=== PATIENT | male | born 1950 | race Caucasian/White ===

== ENCOUNTER 2018-03-31 07:41 | Day surgery (SDC) | payer MEDICARE, BC ==
[2018-03-29 11:20] VITALS: BMI 49.4
[~2018-03-31 07:41] MED LIST: CYCLOPENTOLATE 1% OPHTH SOLN 2 ML BTL OP ONE; LACTATED RINGERS 1,000 ML IV SCH; MOXIFLOXACIN HCL 0.5% DROPS 3 ML BTL OP ONE; PHENYLEPHRINE 2.5% OPHTH DRP 2ML OP NR; TETRACAINE 0.5% OPHTH (PF) DROPS 4 ML BTL OP ONE; TIMOLOL 0.5% OPHTH DROPS 5 ML BTL OP ONE
[2018-03-31 08:46] VITALS: TEMP 98.7
[2018-03-31 09:01] LABS: Glucose,Whole Blood 99 mg/dL (75-99)
[2018-03-31] MEDS ORDERED: LIDOCAINE 1% 20 ML VIAL (10MG/ML) FOR IV START INTRADERMA ONE (09:03)
[2018-03-31] MEDS ORDERED: fentaNYL (PF) 50 MCG/ML 2 ML AMP ONE (09:35)
[2018-03-31] MEDS ORDERED: MIDAZOLAM 2 MG/2 ML VIAL ONE (09:35)
[2018-03-31] MEDS ORDERED: BALANCED SALT IRRIG SOLN COMB2 15 ML IRRIG.SOLN IRRIGATION ONE (09:42)
[2018-03-31] MEDS ORDERED: HYALURONATE SODIUM INTRAOCULAR 1 EACH SYRINGE (12MG/ML) INTRAOCULA ONE (09:42)
[2018-03-31] MEDS ORDERED: LIDOCAINE 1% (PF) 10MG/ML VIAL SQ ONE (09:42)
[2018-03-31] MEDS ORDERED: EPINEPHrine (PF) 0.3 ML in BALANCED SALT IRRIG SOLN COMB2 500 ML IRRIGATION ONE (09:51)
--- NOTE | 2018-03-31 10:08 | P.OP ---
Date of Procedure: 03/31/18 Preoperative Diagnosis: NS & CS & PSC Postoperative Diagnosis: same Procedure(s) Performed: PIOL, OS Implants: PCB00 25.00 Anesthesia: MAC Surgeon: Alejandro Albarran Pathology: none sent Condition: stable Disposition: same day Indications for Procedure: Blurry vision Operative Findings: No complications
[2018-03-31 10:19] VITALS: RESP 18
[2018-03-31 10:24] LABS: Glucose,Whole Blood 100 mg/dL (75-99)
[2018-03-31 10:27] VITALS: BP 132/60; PULSE 67
--- NOTE | 2018-03-31 11:14 | OP ---
OPERATIVE REPORT DATE OF SERVICE: 03/31/2018. SURGEON: Alejandro Albarran MD PREOPERATIVE DIAGNOSIS: Nuclear sclerosis, cortical sclerosis and posterior subcapsular cataract POSTOPERATIVE DIAGNOSIS: Nuclear sclerosis, cortical sclerosis and posterior subcapsular cataract. OPERATION: Phacoemulsification of cataract and intraocular lens implant of the left eye. ESTIMATED BLOOD LOSS: Zero. SPECIMEN TAKEN: None. NARRATIVE: After obtaining the appropriate consent, the patient was brought to the Operating Room where the patient was placed under cardiac monitoring and prepped and draped in the usual sterile manner. At the 5 o'clock position a 15 degree super sharp blade was used to create a paracentesis followed by instillation of 1% Xylocaine MPF 50:50 mix with BSS into the anterior chamber. This was followed by Amvisc to stabilize the anterior chamber. At the 3 o'clock position a self-sealing corneal flap incision was created using 2.8 mm zafar keratome. A cystotome was used to initiate a continuous tear capsulorrhexis which was completed with the Utrata forceps. A Binkhorst cannula was used to hydrodissect the lens nucleus followed by hydrodelineation. Phacoemulsification of the lens was performed utilizing phaco chop in 11.76 seconds at 7% power. The remaining cortical material was removed using the irrigation aspiration mode followed by additional 1% Xylocaine MPF into the anterior chamber followed by viscoelastic to stabilize the capsular bag. An CONI PCB00 25.0 diopters posterior chamber lens was placed into the capsular bag without difficulty. The remaining viscoelastic material was removed from the anterior chamber with the irrigation/aspiration. Balanced salt solution was used to normalize the intraocular pressure. The incision was checked for watertight integrity. The patient then received two drops of 0.5% timolol followed by two drops Vigamox, was lightly patched and shielded in the usual manner. There were no complications from the procedure. The patient tolerated the procedure well and was returned to recovery in good condition. MMODL / IJN: [id number] /
== END 2018-03-31 11:00 | disposition home or self-care (01) ==
LOC: OR 07:41
PROVIDERS: ATTEND Ophthalmology
DX: H25.13 Age-related nuclear cataract, bilateral (principal); H25.013 Cortical age-related cataract, bilateral; H25.042 Posterior subcapsular polar age-related cataract, left eye; H35.3132 Nonexudative age-related macular degeneration, bilateral, intermediate dry stage; E11.319 Type 2 diabetes mellitus with unspecified diabetic retinopathy without macular edema; H52.03 Hypermetropia, bilateral; H52.223 Regular astigmatism, bilateral; H52.4 Presbyopia; I10 Essential (primary) hypertension; J30.2 Other seasonal allergic rhinitis; E78.5 Hyperlipidemia, unspecified; Z79.82 Long term (current) use of aspirin; Z79.4 Long term (current) use of insulin; Z79.51 Long term (current) use of inhaled steroids; Z79.899 Other long term (current) drug therapy; Z88.8 Allergy status to other drugs, medicaments and biological substances; Z87.891 Personal history of nicotine dependence
CPT/HCPCS: 66984; C1780; J2250; J0171; J3010; J2001

== ENCOUNTER 2018-04-14 06:18 | Day surgery (SDC) | payer MEDICARE, BC ==
[2018-04-09 11:32] VITALS: BMI 49.4
[~2018-04-14 06:18] MED LIST changes: -CYCLOPENTOLATE 1% OPHTH SOLN 2 ML BTL OP ONE; +LIDOCAINE 1% 20 ML VIAL (10MG/ML) FOR IV START INTRADERMA PRN; +MIDAZOLAM 2 MG/2 ML VIAL IV PRN; -PHENYLEPHRINE 2.5% OPHTH DRP 2ML OP NR
[2018-04-14] MEDS: CYCLOPENTOLATE 1% OPHTH SOLN 2 ML BTL OP ONE ×3 (06:42→06:57)
[2018-04-14] MEDS: PHENYLEPHRINE 2.5% OPHTH DRP 2ML OP NR ×3 (06:45→07:00)
[2018-04-14 06:50] VITALS: TEMP 98.7
[2018-04-14 06:54] LABS: Glucose,Whole Blood 120 mg/dL (75-99)
[2018-04-14] MEDS ORDERED: fentaNYL (PF) 50 MCG/ML 2 ML AMP ONE (07:19)
[2018-04-14] MEDS ORDERED: MIDAZOLAM 2 MG/2 ML VIAL ONE (07:19)
[2018-04-14] MEDS ORDERED: EPINEPHrine (PF) 0.3 ML in BALANCED SALT IRRIG SOLN COMB2 500 ML IRRIGATION ONE ×4 (07:39)
[2018-04-14] MEDS ORDERED: HYALURONATE SODIUM INTRAOCULAR 1 EACH SYRINGE (12MG/ML) INTRAOCULA ONE (07:42)
[2018-04-14] MEDS ORDERED: BALANCED SALT IRRIG SOLN COMB2 15 ML IRRIG.SOLN IRRIGATION ONE (07:43)
[2018-04-14] MEDS ORDERED: LIDOCAINE 1% (PF) 10MG/ML VIAL MISCELLANE ONE (07:43)
--- NOTE | 2018-04-14 07:57 | P.OP ---
Date of Procedure: 04/14/18 Preoperative Diagnosis: NS & CS & PSC Postoperative Diagnosis: same Procedure(s) Performed: PIOL OD Implants: PCB00 24.50 Anesthesia: MAC Surgeon: Alejandro Albarran Estimated Blood Loss (ml): 0 Pathology: none sent Condition: stable Disposition: same day Indications for Procedure: blurry vision Operative Findings: no complications
[2018-04-14 08:25] VITALS: BP 114/55; PULSE 54; RESP 16
--- NOTE | 2018-04-14 08:28 | OP ---
OPERATIVE REPORT DATE OF SERVICE: 04/14/2018. SURGEON: Alejandro Albarran MD. PREOPERATIVE DIAGNOSIS: Nuclear sclerosis, cortical sclerosis, posterior subcapsular cataract. POSTOPERATIVE DIAGNOSIS: Nuclear sclerosis, cortical sclerosis, posterior subcapsular cataract. PROCEDURE: Phacoemulsification of cataract and intraocular lens implant of the right eye. ESTIMATED BLOOD LOSS: Zero. SPECIMEN TAKEN: None. NARRATIVE: After obtaining the appropriate consent, the patient was brought to the operating room where the patient was placed under cardiac monitoring and prepped and draped in the usual sterile manner. At the 11 o'clock position a 15 degree super sharp blade was used to create a paracentesis followed by instillation of 1% Xylocaine MPF 50:50 mix with BSS into the anterior chamber. This was followed by Amvisc to stabilize the anterior chamber. At the 9 o'clock position a self-sealing corneal flap incision was created using 2.8 mm zafar keratome. A cystotome was used to initiate a continuous tear capsulorrhexis which was completed with the Utrata forceps. A Binkhorst cannula was used to hydrodissect the lens nucleus followed by hydrodelineation. Phacoemulsification of the lens was performed utilizing phaco chop in 11.09 seconds at 12% power. The remaining cortical material was removed using the irrigation aspiration mode followed by additional 1% Xylocaine MPF into the anterior chamber followed by viscoelastic to stabilize the capsular bag. An CONI PCB00 24.5 diopters posterior chamber lens was placed into the capsular bag without difficulty. The remaining viscoelastic material was removed from the anterior chamber with the irrigation/aspiration. Balanced salt solution was used to normalize the intraocular pressure. The incision was checked for watertight integrity. The patient then received two drops of 0.5% timolol followed by two drops Vigamox, was lightly patched and shielded in the usual manner. There were no complications from the procedure. The patient tolerated the procedure well and was returned to recovery in good condition. MMODL / IJN: [id number] /
== END 2018-04-14 08:41 | disposition home or self-care (01) ==
LOC: OR 06:18
PROVIDERS: ATTEND Ophthalmology
DX: H25.11 Age-related nuclear cataract, right eye (principal); E11.36 Type 2 diabetes mellitus with diabetic cataract; H25.011 Cortical age-related cataract, right eye; H35.3132 Nonexudative age-related macular degeneration, bilateral, intermediate dry stage; H52.03 Hypermetropia, bilateral; H52.223 Regular astigmatism, bilateral; H52.4 Presbyopia; I10 Essential (primary) hypertension; E78.5 Hyperlipidemia, unspecified; E66.01 Morbid (severe) obesity due to excess calories; Z79.899 Other long term (current) drug therapy; Z79.4 Long term (current) use of insulin; Z79.82 Long term (current) use of aspirin; Z87.891 Personal history of nicotine dependence; Z96.642 Presence of left artificial hip joint; Z98.41 Cataract extraction status, right eye; Z96.1 Presence of intraocular lens; Z68.42 Body mass index [BMI] 45.0-49.9, adult
CPT/HCPCS: 66984; C1780; J2250; J0171; J3010; J2001